=== PATIENT | female | born 1995 | race Caucasian/White ===

== ENCOUNTER 2017-03-14 06:53 | Day surgery (SDC) | payer OTHER ==
[2017-03-11 11:46] VITALS: BMI 36.9
--- NOTE | 2017-03-13 16:11 | P.HPOB ---
History of Present Illness H&P Date: 03/13/17 Chief Complaint: Dermoid cyst 21 year old presents for laparoscopic removal of dermoid cyst using da yao. Review of Systems All systems: negative Constitutional: Denies chills, Denies fever Eyes: denies blurred vision, denies pain Ears, nose, mouth and throat: Denies headache, Denies sore throat Cardiovascular: Denies chest pain, Denies shortness of breath Respiratory: Denies cough Gastrointestinal: Denies abdominal pain, Denies diarrhea, Denies nausea, Denies vomiting Genitourinary: Denies dysuria, Denies hematuria Musculoskeletal: Denies myalgias Integumentary: Denies pruritus, Denies rash Neurological: Denies numbness, Denies weakness Psychiatric: Denies anxiety, Denies depression Endocrine: Denies fatigue, Denies weight change Past Medical History Past Medical History: Diabetes Mellitus Additional Past Medical History / Comment(s): OVARIAN CYST History of Any Multi-Drug Resistant Organisms: None Reported Past Surgical History: No Surgical Hx Reported Past Anesthesia/Blood Transfusion Reactions: No Reported Reaction Smoking Status: Current every day smoker Past Alcohol Use History: None Reported Past Drug Use History: None Reported - Past Family History Father Family Medical History: Diabetes Mellitus, Hypertension Mother Family Medical History: No Reported History, Diabetes Mellitus, Hypertension, Myocardial Infarction (NE) Medications and Allergies Home Medications Medication Instructions Recorded Confirmed Type Citalopram Hydrobromide [CeleXA] 10 mg PO DAILY 03/11/17 03/11/17 History metFORMIN HCL 1,000 mg PO BID 03/11/17 03/11/17 History Allergies Allergy/AdvReac Type Severity Reaction Status Date / Time No Known Allergies Allergy Verified 03/11/17 11:40 Exam Osteopathic Statement: *. No significant issues noted on an osteopathic structural exam other than those noted in the History and Physical/Consult. HEart: RRR Lungs: CTAB ABdomen: soft, nontender Extremeties: neg matt's Assessment and Plan (1) Dermoid cyst of left ovary Status: Acute Plan: 1. laparoscopic removal of dermoid cyst, possible left oopherectomy using da yao
[~2017-03-14 06:53] MED LIST: DEXAMETHASONE SOD PHOSPHATE 10 MG/ML 1 ML VIAL IV ONE; LIDOCAINE 1% 20 ML VIAL (10MG/ML) FOR IV START INTRADERMA PRN; MIDAZOLAM 2 MG/2 ML VIAL IV PRN; ONDANSETRON 4 MG/2 ML VIAL IVP ONE; Pre Op ABX Message 1 EACH MISC MISCELLANE ONE; SCOPOLAMINE 1.5MG/72HR PATCH TRANSDERM ONE
[2017-03-14] MEDS ORDERED: BUPIVACAINE (PF) 0.25% 30 ML VIAL SQ ONE (07:18)
[2017-03-14] MEDS: LACTATED RINGERS 1,000 ML IV SCH ×2 (07:41→07:42)
[2017-03-14] MEDS ORDERED: LIDOCAINE 1% 20 ML VIAL (10MG/ML) FOR IV START INTRADERMA ONE ×2 (07:47)
[2017-03-14 07:51] LABS: Glucose,Whole Blood 177 mg/dL (75-99)
--- NOTE | 2017-03-14 09:12 | P.OP ---
Date of Procedure: 03/14/17 Preoperative Diagnosis: 1. Ovarian Dermoid Cyst Postoperative Diagnosis: 1. Ovarian Dermoid Cyst Procedure(s) Performed: Laparoscopic removal of dermoid cyst Anesthesia: SALVATORE Surgeon: Tri Samuel Estimated Blood Loss (ml): 3 IV fluids (ml): 1,400 Urine output (ml): 20 Pathology: other (dermoid cyst) Condition: stable Disposition: PACU Operative Findings: dermoid cyst left ovary Description of Procedure: Patient taken the operating room where general anesthesia was obtained without difficulty. She is prepped and draped in normal sterile fashion dorsal lithotomy position, legs placed in the Jeet stirrups. Bladder was drained of all urine. Weighted speculum placed in the vagina and the anterior lip the cervix was grasped with single-tooth tenaculum. The uterus sounded to 9 cm. The kroner manipulator was placed Attention was then turned to the abdomen and gloves were changed. A 5 mm supraumbilical incision was made the scalpel and a 5 mm optical trocar was placed under direct visualization. 10 cm to the right of this and 2 cm down a 5 mm incision was made and 8 mm da Ananth port was placed under direct visualization. Same measurements on the opposite side of the patient's abdomen, the 5 mm incision was made and 8 mm da Ananth port was placed under direct visualization. In the left upper quadrant a 10 mm incision was made and a 10 mm optical trocar was placed under direct visualization. The 5 mm optical trocar was then replaced with the 8 mm da Ananth camera port. The robot was docked on patient's right side. The camera was introduced and then the monopolar curved scissor and [place] bipolar placed under direct visualization. I broke scrub and went to the physician console. Survey of the pelvis revealed a normal uterus and fallopian tubes and appeared to be normal ovaries. The left ovary did appear to be somewhat enlarged. An incision was made with the monopolar scissors along the dorsal aspect of the ovary. Sebaceous fluid flowed from the ovary which was caught with the suction. Hair was also seen. This dermoid cyst was peeled off the ovary and shelled out. Once it was free was placed and a 10 mm Endo Catch bag and removed out of the assistant pressman port. The ovary was then closed with 2-0 Vicryl in a few figure-of- eight stitches. Excellent hemostasis was observed. The pelvis was copiously irrigated. All instruments removed from the abdomen and vagina. The abdominal incisions were closed with 4-0 Vicryl in a subcuticular fashion. Patient tolerated the procedure well. Sponge and instrument counts were correct 2. She was taken to recovery room in stable condition.
[2017-03-14 09:39] VITALS: TEMP 98.3
[2017-03-14] MEDS: HYDROmorphone 0.5 MG/0.5 ML SYRINGE IVP PRN ×2 (09:48→09:55)
[2017-03-14] MEDS ORDERED: diphenhydrAMINE 50 MG/ML 1 ML VIAL IVP ONE (09:59)
[2017-03-14 10:36] VITALS: RESP 18
[2017-03-14 10:52] LABS: Glucose,Whole Blood 260 mg/dL (75-99)
[2017-03-14] MEDS ORDERED: Acetaminophen-Codeine 300-30mg TAB PO ONE ×2 (11:15→11:28)
[2017-03-14 11:44] VITALS: BP 108/71; PULSE 77
== END 2017-03-14 12:00 | disposition home or self-care (01) ==
LOC: OR 06:53 → MERGE 08:00 → OR 12:00
PROVIDERS: ATTEND Obstetrics & Gynecology
DX: D27.1 Benign neoplasm of left ovary (principal); E11.9 Type 2 diabetes mellitus without complications; F32.9 Major depressive disorder, single episode, unspecified; F17.200 Nicotine dependence, unspecified, uncomplicated; Z82.49 Family history of ischemic heart disease and other diseases of the circulatory system; Z83.3 Family history of diabetes mellitus; Z79.899 Other long term (current) drug therapy; Z79.84 Long term (current) use of oral hypoglycemic drugs
CPT/HCPCS: 58662; 81025; 86900; 86901; 86850; 88307; J1200; J1100; J2405; J1170